=== PATIENT | female | born 1990 | race Caucasian/White ===

== ENCOUNTER 2017-09-09 16:34 | Emergency (ER) | payer BC ==
[~2017-09-09] VITALS: Ht 162.6 cm; Wt 47.3 kg
[~2017-09-09 16:34] MED LIST: MULTIPLE VITAMI1 CTB PO; PHENERGAN 25 TA25 MG PO; [UNRECOGNIZED DRUG - OTHER]; [UNRECOGNIZED DRUG - REMARK]
[2017-09-09] MEDS ORDERED: KLOR-CON SPRIN10 MEQ (17:20)
[2017-09-09 17:21] VITALS: TEMP 98.1
[2017-09-09 17:21] LABS: COLLECTION METHOD CLEAN CATCH
[2017-09-09 17:26] LABS: PH 6 (5-8); SQUAMOUS EPITHELIAL 0-2 /hpf; URINE APPEARANCE Clear; URINE BACTERIA Rare /hpf; URINE BILIRUBIN Negative (NEGATIVE); URINE BLOOD Negative (NEGATIVE); URINE COLOR Colorless; URINE GLUCOSE Negative (NEGATIVE); URINE KETONE Negative (NEGATIVE); URINE LEUKOCYTE ESTERASE Negative (NEGATIVE); URINE NITRATE Negative (NEGATIVE); URINE PROTEIN(semi-quant) Negative (NEGATIVE); URINE RBC 0-2 /hpf; URINE UROBILINOGEN Negative (NEGATIVE)
[2017-09-09 17:38] VITALS: BP 122/79; PULSE 62
== END 2017-09-09 17:40 | disposition home or self-care (01) ==
LOC: COL.ER 16:34
PROVIDERS: Physician Assistant
DX: K52.9 Noninfective gastroenteritis and colitis, unspecified (principal); G43.909 Migraine, unspecified, not intractable, without status migrainosus; Z88.0 Allergy status to penicillin

== ENCOUNTER → 2017-10-07 | Outpatient (CLI) | payer BC ==
[~2017-10-07] MED LIST changes: +KLOR-CON SPRIN10 MEQ
== END ==
LOC: COL.LAB 17:47
DX: Z01.89 Encounter for other specified special examinations (principal)

== ENCOUNTER 2020-07-10 17:54 | Emergency (ER) | payer BC ==
[~2020-07-10] VITALS: Ht 160 cm; Wt 47.7 kg
[2020-07-10 18:11] VITALS: BP 132/87
[2020-07-10 18:45] LABS: HEMOGLOBIN 12.8 g/dl (12.5-16.0); MEAN CELL VOLUME 89 fl (80.0-100.0); MEAN CORPUSCULAR HEMOGLOBIN 33 pg (27.0-31.0); MEAN CORPUSCULAR HGB CONC 37 g/dl (33.0-37.0); MEAN PLATELET VOLUME 9.4 fl (7.4-10.4); PLATELET COUNT 219 K/mm3 (130-400); REDCELL DISTRIBUTION WIDTH-CV 11.8 % (11.5-14.5)
[2020-07-10 18:49] LABS: HEMATOCRIT 34.5 % (37.0-47.0)
[2020-07-10 18:55] LABS: ALBUMIN 4.4 gm/dL (3.5-5.0); BILIRUBIN,TOTAL 0.8 mg/dL (0.0-1.0); CALCIUM 8.9 mg/dL (8.4-10.2); CREATININE, serum 0.53 (0.52-1.25); TOTAL PROTEIN 7.3 gm/dL (6.4-8.2)
[2020-07-10 18:57] LABS: POTASSIUM 2.8 mmol/L (3.4-5.0)
[2020-07-10 19:15] LABS: COLLECTION METHOD CLEAN CATCH
[2020-07-10 19:29] LABS: MUCOUS Present /lpf; PH 5 (5-8); SQUAMOUS EPITHELIAL 0-2 /hpf; URINE APPEARANCE Hazy; URINE BACTERIA Rare /hpf; URINE BILIRUBIN Negative (NEGATIVE); URINE BLOOD 2+ (NEGATIVE); URINE COLOR Yellow; URINE GLUCOSE Negative (NEGATIVE); URINE KETONE 1+ (NEGATIVE); URINE LEUKOCYTE ESTERASE Trace (NEGATIVE); URINE NITRATE Negative (NEGATIVE); URINE PROTEIN(semi-quant) Negative (NEGATIVE); URINE UROBILINOGEN Negative (NEGATIVE)
[2020-07-10 19:49] LABS: LYMPHOCYTE 1 % (20.0-51.0); NEUTROPHILS 95 % (42.0-75.2); PLATELET ESTIMATE NORMAL (NORMAL)
[2020-07-10 22:08] VITALS: TEMP 98.8
[2020-07-10] MEDS ORDERED: CIPRO 500MG TA500 MG PO (22:14)
[2020-07-10 22:28] VITALS: PULSE 109
== END 2020-07-10 22:30 | disposition home or self-care (01) ==
LOC: COL.ER 17:54
PROVIDERS: Nurse Practitioner
DX: R50.9 Fever, unspecified (principal); M54.5 Low back pain; N39.0 Urinary tract infection, site not specified; Z20.822 Contact with and (suspected) exposure to COVID-19; Z88.0 Allergy status to penicillin
CPT/HCPCS: J1580; J7030